=== PATIENT | female | born 1990 | race Hispanic/Latino ===

== ENCOUNTER 2021-12-02 04:15 | Emergency (ER) | payer OTHER ==
[~2021-12-02] VITALS: Ht 170.2 cm; Wt 61.2 kg
[2021-12-02] MEDS ORDERED: ACETAMINOPHEN 325 MG TAB PO ONE (04:30)
[2021-12-02 04:37] LABS: CLARITY,URINE CLOUDY (CLEAR); COLOR,URINE RED (YELLOW); LEUKOCYTE ESTERASE ,URINE 2+ (NEGATIVE); NITRITE,URINE NEGATIVE (NEGATIVE); PROTEIN,URINE DIPSTICK 2+ (NEGATIVE)
[2021-12-02 04:38] LABS: KETONES,URINE 1+ (NEGATIVE); URINE UROBILINOGEN 0.2 mg/dL (0.2 - 1)
[2021-12-02 04:46] LABS: RBC,URINE >50 /HPF (0-5); WBC,URINE (MAN) >50 /HPF (0-5)
[2021-12-02 04:47] LABS: BACTERIA,URINE MANY /HPF; EPITHELIAL CELLS,URINE FEW /LPF; RENAL EPITHELIAL CELLS,URINE FEW
== END 2021-12-02 04:49 | disposition home or self-care (01) ==
LOC: ER 04:22
DX: O23.42 Unspecified infection of urinary tract in pregnancy, second trimester (principal); R30.0 Dysuria
CPT/HCPCS: 81001; 99283